=== PATIENT | female | born 1985 | race Caucasian/White ===

== ENCOUNTER → 2024-10-09 | Outpatient (CLI) | payer OTHER ==
--- NOTE | 2024-10-10 08:13 | US ---
EXAMINATION TYPE: US venous doppler duplex LE DATE OF EXAM: 10/09/2024 10:36 AM COMPARISON: NONE CLINICAL INDICATION: Female, 39 years old with history of R60.9 EDEMA Z86.718 HX OF BLOOD CLOTS BLE; Hx of blood clot x 12 years ago. , TECHNIQUE: SIDE PERFORMED: Bilateral FINDINGS: VESSELS IMAGED: Common Femoral Vein Deep Femoral Vein Greater Saphenous Vein * Femoral Vein Popliteal Vein Small Saphenous Vein * Proximal Calf Veins (* superficial vessels) Right Leg: Negative for DVT, Color Doppler imaging shows patency of the vessels. Spectral waveforms are within normal limits. Left Leg: Negative for DVT, Color Doppler imaging shows patency of the vessels. Spectral waveforms a re within normal limits. IMPRESSION: No ultrasound evidence for deep venous thrombosis. [facility], , 10/10/2024 8:11 AM
== END | disposition home or self-care (01) ==
LOC: RADUSWWP 10:07
PROVIDERS: ATTEND Family Medicine
DX: R60.9 Edema, unspecified (principal); Z86.718 Personal history of other venous thrombosis and embolism
CPT/HCPCS: 93970

== ENCOUNTER → 2025-05-08 | Outpatient (CLI) | payer OTHER ==
--- NOTE | 2025-05-26 10:35 | P.HOLTER ---
Holter monitor shows sinus mechanism Heart rates ranging from 40-143 beats a minute Average heart rates in the 70s 34 episodes of irregular, nonsustained SVT, longest duration of 18 beats No sustained arrhythmias
--- NOTE | 2025-05-27 08:38 | HM ---
Holter monitor shows sinus mechanism. Heart rates ranging from 40-143 beats a minute. Average heart rates in the 70s. 34 episodes of irregular, nonsustained SVT, longest duration of 18 beats. No sustained arrhythmias. MTDD
== END | disposition home or self-care (01) ==
LOC: RADECHMAIN 08:06
PROVIDERS: ATTEND Family Medicine
DX: I47.10 Supraventricular tachycardia, unspecified (principal); R00.2 Palpitations; R55 Syncope and collapse; Z82.49 Family history of ischemic heart disease and other diseases of the circulatory system
CPT/HCPCS: 93225

== ENCOUNTER → 2025-05-13 | Outpatient (CLI) | payer OTHER ==
--- NOTE | 2025-05-13 11:11 | CA ---
Exercise Stress Test Report Name: Stephani Klein Exam Date: 05/13/2025 10:17 Exam Location: [place] Stress Ht (in): 67 Wt (lb): 245 BSA: 2.20 Ordering Phys: Viktor Long MD Referring Phys: Viktor Long MD Technologist: Jose Ramsey Age: 39 Gender: F : 1985 Procedure CPT: Indications: R55 SYNCOPE,Z82.49 FAIMLY HX ICD-10 Codes: Patient History: Medications: BUSBURONE, ADEROL, XANAX Meds past 24 hrs: Pretest Chest Pain: STRESS TEST Todd Protocol Exercise Duration (min:sec): 09:[address] Depressions (mm): Angina Score: Duarte Score: Resting HR (bpm): 72 Peak HR (bpm): 162 Resting BP (mmHg): 142 / 96 Peak BP (mmHg): 214 / 86 MPHR: 183 Target HR: 156 % MPHR: 89 METS: 11.5 Total Dose: Peak Dose: Atropine: Double Product: 39754 BP Response: Stress Termination: Reached target heart rate Stress Symptoms: SHORT OF BREATH Stress Summary: ECG ANALYSIS Resting ECG: Baseline EKG shows normal sinus rhythm normal axis normal intervals Stress ECG: Patient exercised on Todd protocol for 9 minutes and 45 seconds achieving 11 METS 85% of predicted maximal heart rate without chest pain or diagnostic ST segment depression CONCLUSIONS Good exercise tolerance Negative stress test by EKG criteria Dr. Jalil Gutierrez MD (Electronically Signed) Final Date: 13 May 2025 11:10
== END | disposition home or self-care (01) ==
LOC: RADNMMAIN 10:01
PROVIDERS: ATTEND Family Medicine
DX: R55 Syncope and collapse (principal); Z82.49 Family history of ischemic heart disease and other diseases of the circulatory system
CPT/HCPCS: 93017